=== PATIENT | female | born 1960 | race Asian ===

== ENCOUNTER 2018-01-13 12:22 | Day surgery (SDC) | payer OTHER ==
[2018-01-13] MEDS ORDERED: PROPOFOL 40 ML (14:43)
[2018-01-13] MEDS ORDERED: LIDOCAINE 2% (SDV) 5 ML INJ (14:43)
== END 2018-01-13 16:34 | disposition home or self-care (01) ==
LOC: GIL 12:22
DX: Z12.11 Encounter for screening for malignant neoplasm of colon (principal); D12.5 Benign neoplasm of sigmoid colon; K64.8 Other hemorrhoids; K44.9 Diaphragmatic hernia without obstruction or gangrene; K21.9 Gastro-esophageal reflux disease without esophagitis; K29.60 Other gastritis without bleeding; I10 Essential (primary) hypertension; E78.5 Hyperlipidemia, unspecified; E11.9 Type 2 diabetes mellitus without complications; E03.9 Hypothyroidism, unspecified; J45.909 Unspecified asthma, uncomplicated
CPT/HCPCS: 43239; 82962; 88305; 88312